=== PATIENT | female | born 1990 | race Caucasian/White ===

== ENCOUNTER → 2017-05-26 | Outpatient (REF) ==
[~2017-05-26] MED LIST: LORTAB 5/500 501 TAB PO; ORTHO TRI-CYCLE1 TAB; ORTHO TRICYCLINE; PHENERGAN 25 TA25 MG PO; PREDNISONE20 MG PO; PROAIR HFA0.09 MG/AC IH; XOPENEX 3 ML3 M1 IH; ZITHROMAX TRI-500 MG PO; ZOFRAN ODT4 MG PO; ZYRTEC 10MG10 MG
== END ==
LOC: ZLAB.WCH 14:46
DX: Z01.89 Encounter for other specified special examinations (principal)

== ENCOUNTER → 2017-09-22 | Outpatient (REF) | LOC: ZLAB.WCH 18:06 | DX: Z01.89 Encounter for other specified special examinations (principal) ==

== ENCOUNTER → 2017-12-23 | Outpatient (REF) | LOC: ZLAB.WCH 09:12 | DX: Z01.89 Encounter for other specified special examinations (principal) ==

== ENCOUNTER → 2018-07-21 | Outpatient (REF) | LOC: ZLAB.WCH 16:13 | DX: Z01.89 Encounter for other specified special examinations (principal) ==